=== PATIENT | male | born 1945 | race Caucasian/White ===

== ENCOUNTER 2016-08-26 18:57 | Emergency (ER) | payer OTHER ==
[~2016-08-26] VITALS: Ht 180.3 cm; Wt 83.8 kg
[~2016-08-26 18:57] MED LIST: FLOMAX0.4 MG PO; MIRALAX17 GM PO; MOBIC7.5 MG PO; MULTIVITAMIN1 EAC2 PO; PRILOSEC20 MG PO; PROZAC20 MG PO; VITAMIN B12 100MCG PO
[2016-08-26 21:32] VITALS: BP 155/95
== END 2016-08-26 21:35 | disposition home or self-care (01) ==
LOC: EME → EDBD 18:57 → EME 18:57
DX: S01.91XA Laceration without foreign body of unspecified part of head, initial encounter (principal); W10.9XXA Fall (on) (from) unspecified stairs and steps, initial encounter; Z23 Encounter for immunization
CPT/HCPCS: 70450; 99281; 99284